=== PATIENT | female | born 1950 | race Caucasian/White ===

== ENCOUNTER 2016-08-01 16:45 | Day surgery (SDC) | payer OTHER ==
[2016-08-01] MEDS ORDERED: NS 500 ML IV ONE (20:28)
[2016-08-01] MEDS ORDERED: SINGULAIR PO PRN (20:28)
[2016-08-01] MEDS ORDERED: REQUIP PO SCH (21:00)
--- NOTE | 2016-08-01 21:35 | HISTORY AND PHYSICAL ---
CHIEF COMPLAINT: Fatigue, weakness, iron-deficiency anemia. Hematocrit 24, hemoglobin 7 g. HISTORY OF PRESENT ILLNESS: She is a 65-year-old white female, who was initially established in my practice 2 weeks ago. She was seen by her previous family physician and was told she was anemic. Apparently, she was seen by Dr. Wells who did two EGDs and colonoscopy, basically some esophagitis and dilated stricture. She failed to improve after treatment outpatient orally since March 2016. Hematocrit at that time was 26, MCV is low. Follow up hematocrit was 24 in my office. Hemoglobin 7 g. MCV is low and ferritin is 11. Findings are consistent with iron deficiency anemia. She had a negative GI workup. I did further workup 2 weeks ago. She had normal serological tests for celiac disease. IgA antitissue transglutaminase is negative. She was craving ice with pica symptoms and restless leg syndrome. The etiology to be determined. Basically, admitted to the hospital for blood transfusion and iron infusion and then will do outpatient workup for capsule endoscopy. PAST MEDICAL HISTORY: Allergic rhinitis. Metabolic syndrome. Depression. Acid reflux disease. Hyperlipidemia. Hypothyroidism. Restless leg syndrome. PAST SURGICAL HISTORY: Reported cyst removed in the abdomen area. Sinus surgery. Right-sided chest tube by Dr. Tirado in 2011. Right rotator cuff repair. Trigger finger release in 2010. MEDICATIONS: Amlodipine 5 mg twice daily, Bentyl as needed, Estroven 1 tablet daily, Fioricet as needed, levothyroxine 50 mcg daily, Lexapro 20 daily, losartan 50 p.o. b.i.d., Singulair 10 mg daily, Mirapex 1 mg at bedtime, propranolol 10, 3 times daily. Requip 2 mg twice daily, Dyazide 1 tablet daily, Zyrtec as needed. ALLERGIES: Penicillin, tramadol, Librax. SOCIAL HISTORY: . Three kids. Lives in [place]. No smoking. No alcohol. No drugs. Retired. FAMILY HISTORY: Father of blood clots at 50. Mother of heart failure at 90. Sister is from renal failure. HEALTH MAINTENANCE: Influenza and pneumococcal vaccine declined. Last mammography 12/2015. Colonoscopy by Dr. Wells March 2016 and July 2016. LABORATORY: Tissue transglutaminase is negative, SMA7 is normal. Glucose 119. CBC: White cell count 3.9, hematocrit 24, hemoglobin 7.7. MCV 68. Ferritin is low. Folate is normal iron is low. TIBC is high. Vitamin B12, vitamin D is normal. ASSESSMENT AND PLAN: A 65-year-old white female admitted to the hospital for observation with iron-deficiency anemia with a hemoglobin 7.7, hematocrit 24, presented with the symptoms of restless leg syndrome, symptomatic anemia, negative gastrointestinal workup, negative malabsorption for celiac disease. Plan is 2 units of iron infusion, follow up on stool testing and also consider capsule endoscopy. We will follow up and will reconcile home medications, follow up on clinical course.
[2016-08-01 21:41] LABS: BASO% 2.9 % (0.0-0.8); EOS# 0.17 X1000 (0.0-0.7); EOS% 3.1 % (0.0-10.0); HEMATOCRIT 26.7 % (37.0-47.0); HEMOGLOBIN 7.8 g/dL (12.0-16.0); LYMPH% 29.1 % (20.5-51.1); MANUAL DIFF NEEDED? YES; MCH 20.8 PG (27-31); MCHC 29.2 g/dL (33-37); MCV 71.2 FL (81-99); MONO# 0.59 X1000 (0.11-0.59); MONO% 10.7 % (1.7-9.3); MPV 9.9 FL (7.4-10.4); NEUT% 54.2 % (42.2-75.2); PLT 352 X1000 (130-400); RBC 3.75 XMIL (4.2-5.4)
[2016-08-01] MEDS: BENICAR PO SCH (22:28)
[2016-08-01 22:37] LABS: BANDS 2 % (0-1); BASO 2 % (0-1); EOS 4 % (1-10); HYPOCHROM 1+; LYMPHS 30 % (21-51); MONO 10 % (1-9)
[2016-08-02 06:06] LABS: MANUAL DIFF NEEDED? NO
[2016-08-02 06:26] LABS: BASO% 1.8 % (0.0-0.8); EOS# 0.19 X1000 (0.0-0.7); EOS% 3.5 % (0.0-10.0); HEMATOCRIT 34.2 % (37.0-47.0); HEMOGLOBIN 10.6 g/dL (12.0-16.0); LYMPH# 1.71 X1000 (1.2-3.4); LYMPH% 31.6 % (20.5-51.1); MCH 23.7 PG (27-31); MCV 76.3 FL (81-99); MONO# 0.65 X1000 (0.11-0.59); MPV 9.8 FL (7.4-10.4); NEUT% 51.1 % (42.2-75.2); PLT 295 X1000 (130-400); RBC 4.48 XMIL (4.2-5.4)
[2016-08-02] MEDS ORDERED: PRILOSEC PO SCH (07:00)
[2016-08-02] MEDS ORDERED: VENOFER IV ONE (08:23)
[2016-08-02] MEDS ORDERED: LOVAZA PO SCH (09:00)
[2016-08-02] MEDS ORDERED: VENOFER 300 MG in NS 250 ML IV ONE (09:00)
[2016-08-02] MEDS ORDERED: ZYRTEC PO SCH (09:00)
[2016-08-02] MEDS ORDERED: CITRACAL + D PO SCH (09:00)
[2016-08-02] MEDS ORDERED: SYNTHROID PO SCH (09:00)
[2016-08-02] MEDS ORDERED: PNEUMOVAX 23 IM ONE (09:00)
[2016-08-02] MEDS ORDERED: LASIX PO SCH (09:00)
[2016-08-02] MEDS: LEXAPRO PO SCH ×2 (09:10→09:14)
[2016-08-02] MEDS: BENICAR PO SCH (09:11)
[2016-08-02 09:25] VITALS: BP 110/56
== END 2016-08-02 11:50 | disposition home or self-care (01) ==
LOC: DIRADM 16:45 → OPS 16:45 → UNDOADMOB 16:45 → DIRADM 20:21 → 4N 20:21 → UNDODISOB 08-02 11:50 → OPS 08-02 11:50 → EDSTATUS 08-03 13:27
PROVIDERS: ATTEND Internal Medicine
DX: D50.9 Iron deficiency anemia, unspecified (principal); R53.83 Other fatigue; R53.1 Weakness; K20.9 Esophagitis, unspecified; G25.81 Restless legs syndrome; J30.9 Allergic rhinitis, unspecified; E88.81 Metabolic syndrome and other insulin resistance; F32.9 Major depressive disorder, single episode, unspecified; E78.5 Hyperlipidemia, unspecified; E03.9 Hypothyroidism, unspecified; Z82.49 Family history of ischemic heart disease and other diseases of the circulatory system; Z79.899 Other long term (current) drug therapy; Z23 Encounter for immunization; K21.9 Gastro-esophageal reflux disease without esophagitis
CPT/HCPCS: 85025; 86850; 86900; 86901; 86920; 90732; J1756; J7040; J7050; P9016